=== PATIENT | female | born 1930 | race Asian ===

== ENCOUNTER 2019-08-31 14:30 | Emergency (ER) | payer OTHER ==
[~2019-08-31] VITALS: Ht 149.9 cm; Wt 49.9 kg
[~2019-08-31 14:30] MED LIST: AMIO200T65 PO; AMLO5TAB6 PO; ASPI81EC20 PO; GLIM4TAB42 PO
[2019-08-31 14:36] VITALS: BP 138/86
--- NOTE | 2019-08-31 14:45 | NUR ---
YORUBA SPEAKING ONLY 89 YR OLD F BIBA ALS FROM HOME C/O GENERALIZED WEAKNESS X 1 MONTH DRY HEAVING AND LOWER ABDOMINAL PAIN ON ARRIVAL. HX: DM, HTN OBTAIN BY FAMILY KELVIN
[2019-08-31] MEDS ORDERED: NACL 0.9% 1,000 ML IV ONE (15:50)
[2019-08-31 16:23] LABS: BASOPHILS # (AUTO) 0.1 K/uL (0.00-0.22); BASOPHILS % (AUTO) 0.5 % (0.0-2.0); HEMATOCRIT 37.6 % (36-48); HEMOGLOBIN 12.9 g/dL (12.0-16.0); LYMPHOCYTES # (AUTO) 0.8 K/uL (2.5-16.5); LYMPHOCYTES % (AUTO) 6.7 % (20.5-51.1); MEAN CORPUSCULAR HEMOGLOBIN 33 pg (27-31); MEAN CORPUSCULAR HGB CONC 34 g/dL (33-37); MEAN CORPUSCULAR VOLUME 96.8 fL (80-94); MONOCYTES # (AUTO) 0.6 K/uL (0.8-1.0); MONOCYTES % (AUTO) 4.9 % (1.7-9.3); NEUTROPHILS # (AUTO) 11.1 K/uL (1.8-7.7); NEUTROPHILS % (AUTO) 87.9 % (42.2-75.2); PLATELET COUNT (AUTO) 158 K/uL (140-450); RED BLOOD CELL COUNT(AUTO) 3.89 MIL/uL (4.20-5.40); RED CELL DISTRIBUTION WIDTH 12.8 % (11.6-13.7); WHITE BLOOD COUNT (AUTO) 12.7 K/uL (4.8-10.8)
[2019-08-31 16:44] LABS: ALBUMIN 3.8 g/dL (3.4-5.0); ANION GAP 14.3 (8-16); ASPARTATE AMINOTRANSFERASE 15 U/L (15-37); CARBON DIOXIDE 27.3 mmol/L (21-32); CHLORIDE 100 mmol/L (98-107); CREATININE 0.7 mg/dL (0.6-1.3); GLUCOSE 118 mg/dL (74-106); POTASSIUM 3.6 mmol/L (3.5-5.1); SODIUM SERUM 138 mmol/L (136-145); TOTAL BILIRUBIN 1.1 mg/dL (0.0-1.0); UREA NITROGEN, BLOOD 14 mg/dL (7-18)
--- NOTE | 2019-08-31 16:45 | NUR ---
PT PLACED ON BED MELENDEZ AND ABLE TO TO PROVIDE URINE SAMPLE, URINE SENT TO LAB TO BE PROCESSED WITH CLINICAL COUNSELOR.
--- NOTE | 2019-08-31 16:57 | NUR ---
PT TAKEN TO CT VIA GURNEY, SON WALKING ALONG SIDE GURNEY WITH PT.
[2019-08-31 17:02] LABS: PROTHROMBIN TIME 10.4 secs (10.8-13.4)
[2019-08-31 17:04] LABS: APPEARANCE,URINE CLOUDY (CLEAR); BILIRUBIN,URINE NEGATIVE (NEGATIVE); BLOOD, URINE TRACE-I (NEGATIVE); COLOR,URINE YELLOW (YELLOW); LEUKOCYTE ESTERASE ,URINE 1+ (NEGATIVE); NITRITE, URINE POSITIVE (NEGATIVE); PH,URINE 7.5 (5.0-9.0); UGLUCOSE NEGATIVE (NEGATIVE)
[2019-08-31 17:21] LABS: RBC,URINE 0-5 /HPF (0-5)
--- NOTE | 2019-08-31 18:21 | NUR ---
Patient discharged with v/s stable. Written and verbal after care instructions given and explained. Patient alert, oriented and verbalized understanding of instructions. Wheel Chair Assisted with to home. All questions addressed prior to discharge. ID band removed. Patient advised to follow up with PMD. Rx of BENTYL AND REGLAN given. Patient educated on indication of medication including possible reaction and side effects. Opportunity to ask questions provided and answered.
[2019-08-31 18:22] VITALS: BP 150/56
== END 2019-08-31 18:21 | disposition home or self-care (01) ==
LOC: MED 14:30
DX: K59.00 Constipation, unspecified (principal); R53.1 Weakness; I11.0 Hypertensive heart disease with heart failure; E11.9 Type 2 diabetes mellitus without complications; Z79.899 Other long term (current) drug therapy; Z79.84 Long term (current) use of oral hypoglycemic drugs; Z79.82 Long term (current) use of aspirin
CPT/HCPCS: 36415; 71045; 74176; 80053; 81001; 82550; 82553; 82948; 83605; 83880; 84484; 85025; 85610; 85730; 87040; 87086; 93005; 96360; 96361; 99285; Q0092